=== PATIENT | male | born 1955 | race Caucasian/White ===

== ENCOUNTER 2025-07-20 13:49 | Emergency (ER) | payer MEDICARE | END 2025-07-20 15:26 | disposition home or self-care (01) | LOC: JD.ED 13:49 | DX: S83.92XA Sprain of unspecified site of left knee, initial encounter (principal); Z79.899 Other long term (current) drug therapy; W55.22XA Struck by cow, initial encounter | CPT/HCPCS: 73562-26-LT; 73562-LT; 99283 ==